=== PATIENT | female | born 1990 ===

== ENCOUNTER 2021-04-25 20:07 | Emergency (ER) | payer BC ==
[2021-04-25 22:45] LABS: ANION GAP 9.5 mEq/L (7-13); CHLORIDE,CL 104 mmol/L (98-107); SODIUM,NA 134 mmol/L (136-145)
[2021-04-25 23:06] LABS: AMPHETAMINES,URINE NEGATIVE (NEGATIVE); BARBITURATES,URINE NEGATIVE (NEGATIVE); BENZODIAZEPINE,URINE NEGATIVE (NEGATIVE); MDMA (ECSTASY), URINE NEGATIVE (NEGATIVE); METHADONE,URINE NEGATIVE (NEGATIVE); METHAMPHETAMINES,URINE NEGATIVE (NEGATIVE); OPIATES,URINE NEGATIVE (NEGATIVE); OXYCODONE,URINE NEGATIVE (NEGATIVE); PHENCYCLIDINE,URINE NEGATIVE (NEGATIVE); TCA,URINE NEGATIVE (NEGATIVE)
== END 2021-04-25 23:40 | disposition home or self-care (01) ==
LOC: DL.ED 20:07
DX: O20.8 Other hemorrhage in early pregnancy (principal); Z3A.01 Less than 8 weeks gestation of pregnancy
CPT/HCPCS: 36415; 76801; 80053; 80305-QW; 80307; 81001; 83605; 83735; 84702; 84703; 85025; 86140; 99284-25